=== PATIENT | male | born 1975 | race Caucasian/White ===

== ENCOUNTER 2017-12-04 17:48 | Emergency (ER) | payer SELFPAY ==
[2017-12-04] MEDS ORDERED: INSULIN REGULAR, HUMAN 100 UNIT/ML 3ML VIAL IV ONE (18:36)
[2017-12-04] MEDS ORDERED: 0.9 % SODIUM CHLORIDE 1,000 ML IV ONE (18:36)
[2017-12-04] MEDS ORDERED: ONDANSETRON HCL 4 MG TAB.RAPDIS PO ONE (18:38)
[2017-12-04 19:03] LABS: BASOPHILS % 0.2 (0.0-1.5); EOSINOPHILS % 0.1 % (0.0-6.8); MEAN CORPUSCULAR HEMOGLOBIN 30.2 pg (28.0-34.0); MEAN CORPUSCULAR VOLUME 93.7 fl (80.0-100.0); MONOCYTES % 2.9 % (0.0-11.0)
[2017-12-04 19:31] LABS: eGFR (African) 51; eGFR (Non-African) 42
--- NOTE | 2017-12-04 19:47 | Diagnostic Imaging Report ---
[facility] [address] [facility].[address] [address] Report Submission Date: Dec 04, 2017 7:44:16 PM CDT Patient Study Name: MAKSIM DENISE Date: Dec 04, 2017 7:20:19 PM CDT Modality Type: DX Gender: M Description: CHEST : 79 Institution: [facility] Physician: BLAINE NEWMAN Portable chest History: Shortness of breath and fatigue Findings: The lungs are clear. There is no pleural effusion. Heart size and pulmonary vascularity are normal. Osseous structures are unremarkable. Impression: Normal. Electronically signed on Dec 04, 2017 7:44:16 PM CDT by: Aditya TOWNSEND
--- NOTE | 2017-12-04 20:14 | Diagnostic Imaging Report ---
[facility] [address] [facility] [place] [address]. [id number] Report Submission Date: Dec 04, 2017 7:48:59 PM CDT Patient Study Name: MAKSIM DENISE Date: Dec 04, 2017 7:13:49 PM CDT Modality Type: CT\SR Gender: M Description: CT ABD PELVIS W/O CO : 79 Institution: [facility] Physician: BLAINE NEWMAN Computed tomography Abdomen/pelvis without contrast History: Nausea and vomiting Findings: Transverse abdomen and pelvis sections are obtained without contrast revealing a double pigtail right ureteral, encrusted along the proximal and distal pigtails and at the level of the right ureteropelvic junction. A 9 mm right renal stone, 3 mm left renal stone, and moderate right hydroureteronephrosis are observed. The right ureter is distended to the level of the pelvic brim. The liver, spleen, adrenals, pancreas, and great vessels are unremarkable. Moderate colonic stool is observed. Bowel loops are normal in caliber. The appendix is normal. Pelvic sections reveal a distended urinary bladder and moderate rectosigmoid stool. The prostate and seminal vesicles are normal in size. Impression: 1. Double pigtail right ureteral stent, heavily encrusted along its proximal and distal ends. The presence of moderate right hydroureteronephrosis suggests stent occlusion. 2. 9 mm right renal stone and 3 mm left renal stone. 3. Moderate urinary bladder distention. 4. Mild constipation. Electronically signed on Dec 04, 2017 7:48:59 PM CDT by: Aditya TOWNSEND
[2017-12-04] MEDS ORDERED: INSULIN REGULAR, HUMAN 100 UNIT in 0.9 % SODIUM CHLORIDE 100 ML IV ONE ×2 (20:59)
[2017-12-04] MEDS ORDERED: LEVOFLOXACIN 500MG/D5W 100ML 500 MG in PREMIX BAG 1 BAG IV SCH (21:00)
--- NOTE | 2017-12-04 21:14 | ED Physician Documentation ---
General Adult - HISTORIAN Historian: patient - HPI Stated Complaint: Elevated BS Chief Complaint: General Adult Additional Information: Pt. is a 42 y/o type 1 diabetic who has felt generally weak and has had no interest in food or drink over last 24 hours. Onset: days ago (1) Timing: still present, worse, persistent since (yesterday) Severity: moderate Modifying Factors: no oral intal since yesterday Context: took some Humalog insulin today but does not remember whern Further Comments: no Last known Well Date: 12/02/17 - ROS CONST: sweating, weakness EYES/ENT: none CVS/RESP: shortness of breath (mild) GI/: abdominal pain, nausea MS/SKIN/LYMPH: none NEURO/PSYCH: other (weakness, decreased ability to concentrate) - PAST HX Past History: other ( kidney stones) Other History: diabetes Type 1 Surgeries/Procedures: other (ureteral ) Immunizations: referred to PCP Allergies/Adverse Reactions: Allergies Allergy/AdvReac Type Severity Reaction Status Date / Time No Known Allergies Allergy Verified 12/04/17 18:07 Home Medications: Ambulatory Orders Medication Instructions Recorded Insulin Glargine,Hum.rec.anlog 35 unit SQ D 12/04/17 [Lantus] Insulin Lispro 3Ml [Humalog] 10 unit SQ PRN PRN 12/04/17 - SOCIAL HX Smoking History: cigarettes Alcohol Use: none Drug Use: none - FAMILY HX Family History: Yes - VITAL SIGNS Vital Signs: Vital Signs Temp Pulse Resp BP Pulse Ox 119 H 14 134/88 98 12/04/17 17:48 12/04/17 17:48 12/04/17 17:48 12/04/17 17:48 - REVIEWED ASSESSMENTS Nursing Assessment Reviewed: Yes Vitals Reviewed: Yes Progress - Results/Orders Results/Orders: cbc, uds, etoh, vbg, ua, cmp, amylase, cxr, abd/pelvic ct without contrast ordered - Progress Progress: given 2 liters NS, 3rd liter at 150/hr, 500 mg levaquin ivpb, 20 units humulin ivp, insulin drip at 4 units/hr humulin Critical Care Note - Critical Care Note Total Time (mins): 0 ED Results Lab/Radiology - Lab Results Lab Results: Lab Results 12/04/17 12/04/17 18:40 18:40 WBC 15.50 K/ul H K/ul (4.00-12.00) RBC 5.91 M/ul H M/ul (3.90-5.20) Hgb 17.9 g/dL g/dL (12.0-18.0) Hct 55.3 % H % (37.0-53.0) MCV 93.7 fl fl (80.0-100.0) MCH 30.2 pg pg (28.0-34.0) MCHC 32.3 g/dL g/dL (30.0-36.0) RDW 13.9 % % (11.3-14.3) Plt Count 345 K/mm3 K/mm3 (130-400) Neut % (Auto) 90.0 % H % (39.0-79.0) Lymph % (Auto) 6.2 % L % (16.0-50.0) [place] % (Auto) 2.9 % % (0.0-11.0) Eos % (Auto) 0.1 % % (0.0-6.8) Baso % (Auto) 0.2 (0.0-1.5) Neut # (Auto) 14.0 # k/uL H # k/uL (1.4-7.7) Lymph # (Auto) 1.0 # k/uL # k/uL (0.6-4.0) [place] # (Auto) 0.4 # k/uL # k/uL (0.0-0.9) Eos # (Auto) 0.0 # k/uL # k/uL (0.0-0.6) Baso # (Auto) 0.0 # k/uL # k/uL (0.0-0.5) Reactive Lymphs % 0.5 % % (0.0-5.0) Reactive Lymphs # 0.1 # k/uL # k/uL (0.0-0.8) Sodium 146 mmol/L H mmol/L (136-145) Potassium 4.4 mmol/L mmol/L (3.5-5.1) Chloride 96 mmol/L L mmol/L (98-107) Carbon Dioxide 12 mmol/L L mmol/L (22-30) BUN 39 mg/dL H mg/dL (9-20) Creatinine 1.90 mg/dL H mg/dL (0.66-1.25) Estimated Creat Clear 46 Est GFR ( Amer) 51 L (60 - ) Est GFR (Non-Af Amer) 42 L (60 - ) Glucose 541 mg/dL H mg/dL (74-106) Calcium 10.7 mg/dL H mg/dL (8.4-10.2) Total Bilirubin 0.5 mg/dL mg/dL (0.2-1.3) AST 21 U/L U/L (15-46) ALT 53 U/L U/L (13-69) Alkaline Phosphatase 164 U/L H U/L (38-126) Total Protein 9.0 g/dL H g/dL (6.3-8.2) Albumin 5.5 g/dL H g/dL (3.5-5.0) Ethyl Alcohol < 10.0 mg/dL mg/dL (0.0-10.0) - Radiology Radiology Impressions: ct abdomen/pelvis shows an occluded right ureteral stent with hydronephrosis, cxr unremarkable - Orders Orders: ED Orders Category Date Time Status Place IV Lock 1T Care 12/04/17 18:36 Active CHEST 1VIEW [RAD] Routine Exams 12/04/[address] ABD & PELVIS W/O CON Stat Exams 12/04/17 Completed ALCOHOL MEDICAL USE ONLY Routine Lab 12/04/17 18:40 Completed CBC/PLATELET/DIFF Routine Lab 12/04/17 18:40 Completed CMP Routine Lab 12/04/17 18:40 Completed DRUG SCREEN URINE MEDICAL ONLY Routine Lab 12/04/17 Ordered URINALYSIS Routine Lab 12/04/17 Ordered VENOUS BLOOD GAS Routine Lab 12/04/17 Ordered 0.9 % Sodium Chloride [Normal Saline] 1,000 ml Med 12/04/17 18:36 Discontinued IV Q1H Chem Sticks Med 12/04/17 20:00 Ordered 1 each CHEMQID Insulin Regular, Human [Humulin R] Med 12/04/17 18:36 Discontinued 20 unit IV NOW ONE Insulin Regular, Human [Humulin R] 100 unit Med 12/04/17 20:59 Active 0.9 % Sodium Chloride [Sodium Chloride] 100 ml IV 1T Levofloxacin 500Mg/D5w 100Ml [Levaquin] 500 mg Med 12/04/17 21:00 Ordered Premix Bag [Premix Fluid] 1 bag IV DAILY Ondansetron HCl Rapdis [Zofran Odt] Med 12/04/17 18:38 Discontinued 4 mg PO NOW ONE General Adult Physical Exam - PHYSICAL EXAM GENERAL APPEARANCE: moderate distress EENT: eye inspection normal, other (dry muscous membranes) NECK: normal inspection, thyroid normal, supple RESPIRATORY: no resp distress, chest non-tender, breath sounds normal CVS: reg rate & rhythm, heart sounds normal, equal pulses ABDOMEN: soft, no organomegaly, normal bowel sounds, non-tender. No: mass BACK: normal inspection, no CVA tenderness SKIN: diaphoresis, pallor EXTREMITIES: no evidence of injury NEURO: oriented X3, CN's nml as tested, motor nml, depressed mood/affect Discharge Clincal Impression: Urinary tract infection Diabetic ketoacidosis Qualifiers: Diabetes mellitus type: type 1 Diabetes mellitus complication detail: without coma Qualified Code(s): E10.10 - Type 1 diabetes mellitus with ketoacidosis without coma Referrals: Primary Doctor,No [Primary Care Provider] - 2 Days Comments: Case discussed with Manolo at [facility] for Dr. Guerra who accepts pt. Transferred in stable condition by ground EMS to [facility] for higher level of care. Condition: Stable Disposition: [facility] Decision to Admit: NO Decision Time: 21:42
[2017-12-05 00:43] VITALS: BP 128/87
[2017-12-05 07:41] LABS: CANNABINOIDS NEGATIVE ng/mL (< 50); METHYLENEDIOXYMETHAMPHETAMINE NEGATIVE ng/mL (<500)
[2017-12-05 07:44] LABS: APPEARANCE,URINE CLOUDY (CLEAR); COLOR,URINE RED (YELLOW); OCCULT BLOOD,URINE 3+ (NEGATIVE); PH URINE 7.5 (5.0 - 8.0); UROBILINOGEN URINE 0.2 Eu (0.2-1.0)
[2017-12-07 08:03] LABS: PH BG VENOUS 7.28 (7.32-7.43)
== END 2017-12-04 22:25 | disposition short-term general hospital (02) ==
LOC: ED 17:48
DX: E11.10 Type 2 diabetes mellitus with ketoacidosis without coma (principal); N39.0 Urinary tract infection, site not specified
CPT/HCPCS: 36415; 71045; 74176; 80053; 80320; 80377; 81002; 82805; 85025; A9270; J1815; J1956; J7030; 96365; 96366; 99285; G0480; G0481; S1016

== ENCOUNTER 2018-02-07 10:15 | Emergency (ER) | payer SELFPAY ==
[2018-02-07] MEDS ORDERED: 0.9 % SODIUM CHLORIDE 1,000 ML IV ONE ×5 (10:20→13:01)
[2018-02-07] MEDS ORDERED: INSULIN REGULAR, HUMAN 100 UNIT/ML 3ML VIAL IV ONE ×3 (10:25→13:21)
[2018-02-07] MEDS ORDERED: SODIUM BICARBONATE 50 MEQ/50 ML SYRINGE ONE (10:32)
[2018-02-07] MEDS ORDERED: SODIUM BICARBONATE 2.4 MEQ VIAL INJ ONE (10:35)
[2018-02-07] MEDS ORDERED: 0.9 % SODIUM CHLORIDE 100 ML IV ONE (10:42)
[2018-02-07] MEDS ORDERED: INSULIN REGULAR, HUMAN 100 UNIT in 0.9 % SODIUM CHLORIDE 100 ML IV ONE ×2 (10:46)
[2018-02-07 10:59] LABS: MEAN CORPUSCULAR HEMOGLOBIN 31.2 pg (28.0-34.0); MEAN CORPUSCULAR VOLUME 110.6 fl (80.0-100.0)
[2018-02-07 11:04] LABS: eGFR (African) 39; eGFR (Non-African) 32
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
--- NOTE | 2018-02-07 11:58 | Diagnostic Imaging Report ---
NEGRITO CAM (PERSONNEL RECRUITER) - ER [facility] [address] [facility] [address] [place], [place]. [address] Report Submission Date: Feb 07, 2018 11:53:13 AM CDT Patient Study Name: MAKSIM DENISE Date: Feb 07, 2018 11:26:58 AM CDT Modality Type: CT\SR Gender: M Description: CT ABD PELVIS W/O CO : 79 Institution: [facility] Physician: NEGRITO CAM (PERSONNEL RECRUITER) - ER CT abdomen and pelvis without contrast. History: Leukocytosis and abdominal pain. Technique: Transaxial computed tomographic images of the abdomen and pelvis were obtained without the use of intravenous contrast according to standard protocol. Findings: Comparison is made to exam dated 12/04/2017. The lung bases are clear. The heart size is normal. The liver is normal in density. The gallbladder is normal. The pancreas spleen and adrenal glands are normal. Right ureteral stent remains in place with mild hydronephrosis. Small focus of gas is seen in the intrarenal collecting system currently. The calcification adjacent to the proximal portion stent in the renal pelvis is unchanged. There is also a 8 mm calculus seen in the midportion of the right ureter, previously seen in the mid calyx.. 3 mm left intrarenal calculus is present. There is no bowel wall thickening or dilation present. Mild amount of retained stool is present within the colon. The stomach is fluid filled. The appendix is not identified. Small amount of free fluid is seen in the pelvis. There is a stone present in the dependent portion of the bladder which has decreased in size now measuring approximately 1.0 cm, previously measured approximately 2.5 cm. The calcifications along the pigtail portion of the distal portion of the stent. Jain catheter is present in the bladder. The osseous structures are normal. Impression: 1. Right ureteral stent in place with persistent hydronephrosis with progression of the stone now located within the mid ureter measuring 8 mm. 2. Small focus of intrarenal gas is present. This may be iatrogenic given presence of Jain catheter and stent however superimposed infection cannot be excluded. 3. Bladder calculus has decreased. 4. Left intrarenal calculus is unchanged. Electronically signed on Feb 07, 2018 11:53:13 AM CDT by: Fahad TOWNSEND
--- NOTE | 2018-02-07 11:59 | Diagnostic Imaging Report ---
NEGRITO CAM (QUALITY CONTROL ASSISTANT) - ER [facility] [address] [facility] [address] [place], [place]. [address] Report Submission Date: Feb 07, 2018 11:46:52 AM CDT Patient Study Name: MAKSIM DENISE Date: Feb 07, 2018 11:23:38 AM CDT Modality Type: CT\SR Gender: M Description: CT BRAIN W/O CONTRAST : 79 Institution: [facility] Physician: NEGRITO CAM (QUALITY CONTROL ASSISTANT) - ER CT Brain without Contrast History: Altered mental status. Technique: Transaxial CT was performed without contrast from the skull base to the vertex. Findings: Scattered bilateral white matter hypodensity is present, consistent with gliosis. Evidence of old right basal ganglia lacunar infarct noted. Mild cerebral atrophy is present. The lateral ventricles are mildly dilated. No hemorrhage or edema-producing mass. The fourth ventricle is midline. The paranasal sinuses are clear. No skull fracture. The mastoid air cells are well developed and well aerated. Impression: 1. Mild cerebral atrophy , white matter gliosis and evidence of old right basal ganglia lacunar infarct. 2. No acute cerebral pathology. Electronically signed on Feb 07, 2018 11:46:52 AM CDT by: Fahad Jasso [facility] HOSPITALFranki
[2018-02-07] MEDS ORDERED: VANCOMYCIN HCL 1 GM VIAL IV ONE (13:00)
[2018-02-07] MEDS ORDERED: PIPERACILLIN SODIUM/TAZOBACTAM 3.375 GM VIAL IV ONE ×2 (13:00→13:01)
[2018-02-07] MEDS ORDERED: VANCOMYCIN HCL 1 GM in 0.9 % SODIUM CHLORIDE 500 ML IV ONE (13:00)
[2018-02-07 13:19] LABS: eGFR (African) 45; eGFR (Non-African) 37
[2018-02-07] MEDS ORDERED: 0.9 % SODIUM CHLORIDE 500 ML IV ONE (13:20)
[2018-02-07 14:10] VITALS: BP 127/75
--- NOTE | 2018-02-07 14:59 | Diagnostic Imaging Report ---
NEGRITO CAM (BILINGUAL STUDENT TUTOR) - ER [facility] [address] [address] Report Submission Date: Feb 07, 2018 12:10:56 PM CDT Patient Study Name: MAKSIM DENISE Date: Feb 07, 2018 11:51:56 AM CDT Modality Type: DX Gender: M Description: CHEST : 79 Institution: [facility] Physician: NEGRITO CAM (BILINGUAL STUDENT TUTOR) - ER Chest , 1 view History: Tachypnea, hypoxia. Findings: The heart size is normal. The lungs are hypoinflated. No acute infiltrate present. There is no pleural effusion or pneumothorax identified. Impression: 1. Lung hypoinflation without acute infiltrate. Electronically signed on Feb 07, 2018 12:10:56 PM CDT by: Fahad TOWNSEND
[2018-02-08 07:07] LABS: CANNABINOIDS NEGATIVE ng/mL (< 50); METHYLENEDIOXYMETHAMPHETAMINE NEGATIVE ng/mL (<500)
[2018-02-08 07:27] LABS: ABG PH 6.89 (7.35-7.45)
[2018-02-08 07:28] LABS: ABG BASE EXCESS -29.7 (-2 - +2)
[2018-02-08 09:25] LABS: SEGMENTED NEUTROPHILS % 93 % (39-79)
== END 2018-02-07 13:59 | disposition short-term general hospital (02) ==
LOC: ED 10:15
DX: N20.0 Calculus of kidney (principal); E86.0 Dehydration; E10.10 Type 1 diabetes mellitus with ketoacidosis without coma; A41.9 Sepsis, unspecified organism; R41.0 Disorientation, unspecified; R31.0 Gross hematuria
CPT/HCPCS: 36600; 70450; 71045; 74176; 80048; 80053; 80320; 80377; 82803; 83605; 84484; 85025; J1815; J2543; J3370; J7030; J7060; 96360; 96361; 96365; 96366; 96368; 96372; 96375; 96376; 99285; G0480; G0481; S1016

== ENCOUNTER 2018-05-03 22:05 | Emergency (ER) | payer SELFPAY ==
--- NOTE | 2018-05-03 22:24 | ED Physician Documentation ---
General Adult - HISTORIAN Historian: patient - HPI Stated Complaint: left testicle pain Chief Complaint: General Adult Onset: hours (12) Timing: still present Severity: mild Further Comments: yes (He states his left testicle started to hurt about 9 am. Denies any issues with visual blood in his urine. denies a fever. States he only had a piece of sausage this evening with a sip of water. He did vomit x 2 earlier today. He states he has diabetes and he does take his medications daily. He has no other complaints at this time.) Last known Well Code/Unknown Code: Unknown - ROS CONST: denies: fever, sweating, weakness GI/: vomiting, nausea (earlier this afternoon not currently ). denies: abdominal pain, diarrhea MS/SKIN/LYMPH: denies: rash NEURO/PSYCH: denies: headache - PAST HX Past History: other (diabetes ) Immunizations: referred to PCP Allergies/Adverse Reactions: Allergies Allergy/AdvReac Type Severity Reaction Status Date / Time No Known Allergies Allergy Verified 05/03/18 22:13 Home Medications: Ambulatory Orders Medication Instructions Recorded Insulin Glargine,Hum.rec.anlog 37 unit SQ HS 12/04/17 [Lantus] Insulin Lispro 3Ml [Humalog] 10 unit SQ PRN PRN 12/04/17 - SOCIAL HX Smoking History: cigarettes Alcohol Use: none Drug Use: none - FAMILY HX Family History: No - VITAL SIGNS Vital Signs: Vital Signs Temp Pulse Resp BP Pulse Ox 127/75 02/07/18 13:59 - REVIEWED ASSESSMENTS Nursing Assessment Reviewed: Yes Vitals Reviewed: Yes Progress - Progress Progress: 2330: sleeping in room . DG 2350: states pain is improved "helped me be able to sleep" - he is able to urinate with no pain DG 0005: denies pain. He has had kidney stones in the past he states he is aware how to strain urine. Plan discussed - he has a urologist he will call in AM DG ED Results Lab/Radiology - Radiology Radiology Impressions: CT of abdomen and pelvis without contrast Clinical history: History of kidney stones. Hematuria and right-sided pain beginning this morning. Technique: CT of the abdomen and pelvis is performed without oral or intravenous administration of contrast. Sagittal and coronal reconstructions were performed by the technologist. Comparison is made to a prior study dated 02/07/2018. Findings: Visualized lung bases are clear. The liver and spleen demonstrate normal attenuation without focal defect. The gallbladder is normally distended. There is no pancreatic or adrenal abnormality. There is bilateral hydronephrosis with a 5 mm distal left ureteral calculus. There is no obvious right ureteral calculus. Motion artifact is seen on images through the pelvis. There is free fluid in the pelvis or abdomen. Vascular calcification is present in the abdominal aorta and its major branches. There are punctate bilateral intrarenal calculi. Gas and stool are present in the colon. The appendix is visualized and is unremarkable. Impression: 1. 5 mm distal left ureteral calculus at the S3 level with left obstructive uropathy. 2. Bilateral punctate intrarenal calculi and bilateral hydronephrosis 3. Vascular calcification. Electronically signed on May 03, 2018 11:47:55 PM DIRECT CASTING OPERATOR by: Bar Lispcomb General Adult Physical Exam - PHYSICAL EXAM GENERAL APPEARANCE: very figety in room. Denies from pain EENT: eye inspection normal, pharynx normal, dry mucous membranes NECK: normal inspection RESPIRATORY: no resp distress, chest non-tender, breath sounds normal CVS: reg rate & rhythm, heart sounds normal, equal pulses ABDOMEN: soft, normal bowel sounds, no distension, other (testicle is palpated with no redness or pain. No penial discharge noted ) BACK: no CVA tenderness SKIN: warm/dry, normal color EXTREMITIES: non-tender, normal range of motion, no evidence of injury, no edema NEURO: oriented X3 Discharge Clincal Impression: Kidney stone Referrals: Primary Doctor,No [Primary Care Provider] - 2 Days Comments: 1. Flomax 0.4 mg take 1 by mouth daily 2. Cyclobenzaprine 10 mg take 1 by mouth every 12 hours as needed for pain 3. Bactrim DS take 1 by mouth every 12 hours for 10 days 4. Toradol 10 mg take 1 by mouth every 6 hours as needed for pain 5. CONTINUE all other meds for diabetes 6. IF YOU CANNOT urinate or see blood return to ER - fever, increased pain or other concerns 7. Call your Urologist in the AM for appt 8. Strain urine Condition: Stable Disposition: 01 HOME, SELF-CARE Decision to Admit: NO Date of Decison to Admit: 05/04/18 Decision Time: 00:09
[2018-05-03] MEDS ORDERED: 0.9 % SODIUM CHLORIDE 1,000 ML IV ONE (22:35)
[2018-05-03 22:49] LABS: BASOPHILS % 0.7 (0.0-1.5); EOSINOPHILS % 1.7 % (0.0-6.8); MEAN CORPUSCULAR HEMOGLOBIN 29.8 pg (28.0-34.0); MONOCYTES % 4.2 % (0.0-11.0); NEUTROPHILS # 20.2 # k/uL (1.4-7.7)
[2018-05-03 22:50] LABS: eGFR (Non-African) > 60
[2018-05-03] MEDS ORDERED: KETOROLAC TROMETHAMINE 30 MG/1ML VIAL IVP ONE (22:55)
[2018-05-03] MEDS ORDERED: TAMSULOSIN HCL 0.4 MG CAP.ER.24H PO ONE (23:55)
[2018-05-04] MEDS ORDERED: SULFAMETHOXAZOLE/TRIMETHOPRIM 1 EACH TABLET PO ONE (00:02)
[2018-05-04 00:53] VITALS: BP 136/78
--- NOTE | 2018-05-04 06:36 | Diagnostic Imaging Report ---
IRMA HURTADO [facility] [id number] [facility] [address] [place], [place]. [address] Report Submission Date: May 03, 2018 11:47:55 PM COMPLIANCE ATTORNEY Patient Study Name: MAKSIM DENISE Date: May 03, 2018 11:09:55 PM COMPLIANCE ATTORNEY Modality Type: CT\SR Gender: M Description: CT ABD PELVIS W/O CO : 77 Institution: [facility] Physician: IRMA HURTADO CT of abdomen and pelvis without contrast Clinical history: History of kidney stones. Hematuria and right-sided pain beginning this morning. Technique: CT of the abdomen and pelvis is performed without oral or intravenous administration of contrast. Sagittal and coronal reconstructions were performed by the technologist. Comparison is made to a prior study dated 02/07/2018. Findings: Visualized lung bases are clear. The liver and spleen demonstrate normal attenuation without focal defect. The gallbladder is normally distended. There is no pancreatic or adrenal abnormality. There is bilateral hydronephrosis with a 5 mm distal left ureteral calculus. There is no obvious right ureteral calculus. Motion artifact is seen on images through the pelvis. There is free fluid in the pelvis or abdomen. Vascular calcification is present in the abdominal aorta and its major branches. There are punctate bilateral intrarenal calculi. Gas and stool are present in the colon. The appendix is visualized and is unremarkable. Impression: 1. 5 mm distal left ureteral calculus at the S3 level with left obstructive uropathy. 2. Bilateral punctate intrarenal calculi and bilateral hydronephrosis 3. Vascular calcification. Electronically signed on May 03, 2018 11:47:55 PM COMPLIANCE ATTORNEY by: Bar TOWNSEND
[2018-05-04 07:17] LABS: APPEARANCE,URINE CLEAR (CLEAR); COLOR,URINE YELLOW (YELLOW); OCCULT BLOOD,URINE 1+ (NEGATIVE); PH URINE 7.5 (5.0 - 8.0); UROBILINOGEN URINE 0.2 Eu (0.2-1.0)
[2018-05-04 07:17] LABS: CANNABINOIDS NEGATIVE ng/mL (< 50)
[2018-05-04 07:18] LABS: METHYLENEDIOXYMETHAMPHETAMINE NEGATIVE ng/mL (<500)
== END 2018-05-04 00:18 | disposition home or self-care (01) ==
LOC: ED 22:05
DX: N20.0 Calculus of kidney (principal); R11.2 Nausea with vomiting, unspecified; R39.89 Other symptoms and signs involving the genitourinary system; E11.9 Type 2 diabetes mellitus without complications; F17.210 Nicotine dependence, cigarettes, uncomplicated
CPT/HCPCS: 74176; 80053; 80377; 81002; 85025; 87040; A9270; J1885; J7030; 96374; 99284; G0481; S1016